=== PATIENT | male | born 1960 | race Hispanic/Latino ===

== ENCOUNTER 2018-04-01 07:48 | Emergency (ER) | payer OTHER ==
[~2018-04-01] VITALS: Ht 170.2 cm; Wt 80.0 kg
[~2018-04-01 07:48] MED LIST: CIPRO500 MG OR; DILTIAZEM60 M1 OR; GLUCOTROL5 MG OR; HYDROCHLOROT12.5 MG OR; LISINOPRIL20 MG PO; LORTAB5 OR; LORTAB5 PO; METFORMIN500 MG PO; NO HOME MEDS
[2018-04-01] MEDS ORDERED: OFLOXACIN0.3 % OD (08:02)
[2018-04-01 08:17] VITALS: BP 122/73
== END 2018-04-01 08:25 | disposition home or self-care (01) | DRG 125 ==
LOC: ED 07:48
DX: H57.11 Ocular pain, right eye (principal)